=== PATIENT | male | born 1970 | race Caucasian/White ===

== ENCOUNTER 2017-08-27 06:37 | Day surgery (SDC) | payer BC, OTHER ==
[2017-08-27] MEDS ORDERED: CEFAZOLIN 2 GM/DEXTROSE/100 ML BAG IV ONE (07:56)
[2017-08-28] MEDS ORDERED: ceFAZolin 2 GM/SWFI 2 GM/20 ML SYR IVP ONE (08:27)
[2017-08-28] MEDS ORDERED: ceFAZolin 2 GM/DEXTROSE 100 ML IV ONE (08:45)
--- NOTE | 2017-08-28 14:59 | POSTANESTH ---
FORM[facility] Patient Name: MARTHA LALA Rpt#: [id number] Unit Number: [id number] Attending: Jose A Mccallum MD Adm Date: 08/27/17 Post Anesthetic Evaluation Cardiovascular Status: Normal, Stable Respiratory Status: Normal, Stable Level of Consciousness/Mental Status: Mildly Sleepy, Arousable Pain Control: Adequate, Prn Tx Ordered Nausea/Vomiting Control: Adequate, Prn Tx Ordered Complications Possibly Related to Anesthesia: None Noted Paul Ramsay MD 08/27/17948 <Electronically signed by Paul Ramsay MD> 8 T: ROBEL 08/27/17948 CC:
--- NOTE | 2017-08-28 14:59 | POSTOPPROG ---
[facility] Patient Name: MARTHA LALA Rpt#: [id number] Unit Number: [id number] Attending/ER Physician: Jose A Mccallum MD Patient Type: REG SDC Adm Date/Source: 08/27/17 PHY Discharge Date: Primary Carrier: [employer] Documented by: Marianela Coates on Date/Time:08/27/17942 Post Op Note Date of Operation: 08/27/17 Surgeon: Jose A Mccallum End Finder Twisting Department: Marianela Coates Anesthesiologist: Paul Ramsay Anesthesia: GET(General Endotracheal) Pre-op Diagnosis: CRF, umbilical hernia Post-op Diagnosis: same Procedure: lap guided PD catheter placement, umbilical hernia repair (no mesh) Findings: 1 cm defect; good in and outflow of catheter Inf/Abcess present in the surg proc area at time of surgery?: No EBL: Minimal Complications: none Specimen(s): none *This report may have been compiled using a voice recognition system, and might contain typographical errors and blanks.* Marianela TELLO 08/27/1744 <Electronically signed by Marianela TELLO> 2 T: HILDA 08/27/17942 CC:
== END 2017-08-27 11:31 | disposition home or self-care (01) ==
LOC: FSGY 06:37
PROVIDERS: ATTEND Surgery
DX: K42.9 Umbilical hernia without obstruction or gangrene (principal); N18.6 End stage renal disease
CPT/HCPCS: J0690

== ENCOUNTER 2018-04-04 22:01 | Emergency (ER) | payer BC, OTHER ==
--- NOTE | 2018-04-04 22:49 | EDPHY ---
H & P Stated Complaint: Scrotum Swelling - R Kidney Transplant Saturday Time Seen by Provider: 04/04/18 22:09 HPI/ROS: Chief Complaint: Scrotal pain and swelling HPI: 47-year-old man with a history of end-stage renal disease is presenting with right scrotal pain redness and swelling. Patient is 4 days status post kidney transplant performed at the [facility]. He was discharged from the hospital yesterday. Today he has noted increasing redness and swelling of his right scrotum. No dysuria. No fevers or chills. He has been taking his transplant medications. No nausea or vomiting. He called and spoke with the on-call physician was told to present to the emergency department. ROS: 10 systems were reviewed and were negative except those elements noted in the HPI. 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 Testicle is not swollen. Mild tenderness. Back: no CVA tenderness, no midline tenderness Ext: no edema, non-tender Skin: no rash Neuro: CN II-XII intact, Sensation grossly intact, Strength 5/5 in bilateral upper and lower extremities - Personal History Current Tetanus Diphtheria and Acellular Pertussis (TDAP): Yes - Medical/Surgical History Hx Asthma: No Hx Chronic Respiratory Disease: No Hx Diabetes: No Hx Cardiac Disease: Yes Hx Renal Disease: Yes Hx Cirrhosis: No Hx Alcoholism: No Hx HIV/AIDS: No Hx Splenectomy or Spleen Trauma: No Other PMH: Kidney Transplant (Secondary to Renal Failure), Open Heart SGY (2017), HTN - Social History Smoking Status: Never smoked Constitutional: Initial Vital Signs Temperature (C) 36.2 C 04/04/18 22:04 Heart Rate 80 04/04/18 22:04 Respiratory Rate 18 04/04/18 22:04 Blood Pressure 154/92 H 04/04/18 22:04 O2 Sat (%) 96 04/04/18 22:04 O2 Delivery Mode Room Air Allergies/Adverse Reactions: Sulfa (Sulfonamide Antibiotics) Allergy (Verified 08/23/17 12:57) Home Medications: Medication Instructions Recorded Unobtainable 04/04/18 Medical Decision Making - Diagnostics Imaging Results: Imaging Impressions Testicular Ultrasound 04/04/18 22:24 Impression: 1. No evidence of testicular infarction, torsion, or orchitis. 2. Diffuse scrotal thickening, edema and hyperemia with moderate bilateral varicoceles and small right hydrocele. Differential considerations include recent trauma, cellulitis, or systemic causes. The physician hardware sales assistant working with Sunil Roca was notified of these findings by telephone at 11:10 PM on 04/04/2018 ED Course/Re-evaluation: Case discussed with Dr Corona, Transplant surgery at [place]. He is requesting ED to ED transfer to [place]. He would like a dose of IV Vancomycin. OK for pt to transfer via POV. I have discussed with Dr. Kaity You, emergency physician at [facility]. He is accepting the patient transfer. Ultrasound results noted. Consistent with soft tissue infection with hyperemia. - Data Points Laboratory Results: Laboratory Results 04/04/18 23:00 04/04/18 04/04/18 23:00 23:00 WBC Pending RBC Pending Hgb Pending Hct Pending MCV Pending MCH Pending MCHC Pending RDW Pending Plt Count Pending MPV Pending Neut % (Auto) Pending Lymph % (Auto) Pending [place] % (Auto) Pending Eos % (Auto) Pending Baso % (Auto) Pending Nucleat RBC Rel Count Pending Absolute Neuts (auto) Pending Absolute Lymphs (auto) Pending Absolute Monos (auto) Pending Absolute Eos (auto) Pending Absolute Basos (auto) Pending Absolute Nucleated RBC Pending Immature Gran % Pending Immature Gran # Pending Sodium 135 mEq/L mEq/L (135-145) Potassium 3.7 mEq/L mEq/L (3.5-5.2) Chloride 107 mEq/L mEq/L (97-110) Carbon Dioxide 24 mEq/l mEq/l (22-31) Anion Gap 4 mEq/L L mEq/L (6-14) BUN 26 mg/dL H mg/dL (7-23) Creatinine 0.7 mg/dL mg/dL (0.7-1.3) Estimated GFR > 60 Glucose 102 mg/dL H mg/dL (70-100) Calcium 8.2 mg/dL L mg/dL (8.5-10.4) Total Bilirubin 1.2 mg/dL mg/dL (0.1-1.4) AST 24 IU/L IU/L (17-59) ALT 44 IU/L IU/L (21-72) Alkaline Phosphatase 55 IU/L IU/L (38-126) Total Protein 4.2 g/dL L g/dL (6.3-8.2) Albumin 2.4 g/dL L g/dL (3.5-5.0) Medications Given: Vancomycin/Sodium Chloride (Vancomycin 1 Gm (Premix)) 250 mls @ 250 mls/hr IV EDNOW ONE PRN Reason: Protocol Stop: 04/05/18 00:05 Last Admin: 04/04/18 23:13 Dose: 250 mls Departure - Departure Disposition: Acute [facility] Clinical Impression: Cellulitis Condition: Fair Referrals: DEJUAN ALMAZAN [Other] - As per Instructions
[2018-04-04] MEDS ORDERED: VANCOMYCIN HCL/NORMAL SALINE 250 ML IV ONE (23:06)
[2018-04-04 23:45] LABS: PLATELET COUNT 53 10^3/uL (150-400)
[2018-04-05 00:07] VITALS: BP 147/91
[2018-04-05] MEDS ORDERED: ACETAMINOPHEN 500 MG TAB PO ONE (00:31)
== END 2018-04-05 00:36 | disposition short-term general hospital (02) ==
DX: L03.818 Cellulitis of other sites (principal); I10 Essential (primary) hypertension; Z94.9 Transplanted organ and tissue status, unspecified
CPT/HCPCS: 96365; J3370